=== PATIENT | male | born 1965 | race Caucasian/White ===

== ENCOUNTER 2017-12-30 11:34 | Outpatient (CLI) | payer OTHER, SELFPAY ==
--- NOTE | 2017-12-30 06:00 | DI.RAD_ITS ---
SYMPTOM/DIAGNOSIS: LUMBAR RADICULOPATHY C-ARM: Images submitted from the pain clinic demonstrate needle positioning over the right lateral position at the level of L 4 with an injection of radiopaque material. The images carried out in conjunction with a transforaminal epidural steroid injection. Please see Dr. Byrne's procedure report for further information.
--- NOTE | 2017-12-30 11:38 | PDOC.PAIN_ITS ---
Pain Clinic Procedure Note Current Active Problems Problem Status Onset Lumbar radiculopathy Acute LUMBAR / SACRAL TRANSFORAMINAL INJECTION NATHAN BERTRAND has been [facility] for a transforaminal nerve root block and steroid injection. COMMENTS: I reviewed Dr. Toledo's evaluation and his recent lumbar spine MRI Patient was interviewed and the medical record reviewed. There were no medical , pharmacologic, radiographic or other structural contraindications to attempting fluoroscopically guided transforaminal nerve root block and epidural steroid injection. Risks and expected side effects as well as potential benefit of the procedure were reviewed and voiced concerns addressed. The printed consent form was signed and witnessed. Standard time-out procedure was performed. Patient was placed in the prone position on the fluoroscopy table and automated blood pressure cuff and pulse oximeter applied. Fluoroscopy was utilized to identify the right neural foramen between L4 and L5. A skin ezra was made for the needle insertion site. A Chlorhexadine prep was carried out, and sterile drapes were applied. Local anesthesia was achieved in the skin and subcutaneous tissues. A 22 gauge curved tip spinal needle was then inserted, advanced with fluoroscopic guidance into the neural foramen, confirmed on the lateral view. After negative aspiration, 2 ml of Omnipaque 240 was injected confirming position in A/P and lateral views. This showed a good spread of dye transforaminally into the epidural space. There was no vascular update with contrast injection under continuous fluoroscopy and digital substraction. 15 mg of Dexamethasone was injected, followed by 0.5 ml of 1% Xylocaine flush for the nerve root block, as well. There was no unusual discomfort expressed.The needle was withdrawn. The patient tolerated the procedure well. A Band-Aid was applied. Vital signs were stable throughout the procedure and were as recorded in nursing records. If given, dosages of intravenous drugs for anxiolysis and analgesia were documented in nursing records. Follow up plans and appointments were discussed. Post procedure instruction was given as documented in nursing records and patient was discharged in the care of an identified tractor trailer driver. COMMENTS: This procedure can be completed up to 3 times per 12 months if it is found to be effective. Kenneth Byrne DO, MPH [facility] - Subspecialty Board Certification in Pain Medicine CC: Leeanne Garnett
[2017-12-30] MEDS: Dexamethasone Sod. Phos./Pres-Free 10 MG/ML VIAL IJ (11:39)
[2017-12-30] MEDS: Omnipaque 240 MG/ML 50 ML BTL IJ (11:40)
[2017-12-30 11:46] VITALS: BP 111/75; PULSE 65; RESP 16; O2SAT 99
== END 2017-12-30 11:54 ==
PROVIDERS: PCP Physician Assistant; Visit Provider Preventive Medicine Occupational Medicine
DX: M54.16 Radiculopathy, lumbar region (principal)
CPT/HCPCS: 64483; 72100; Q9967

== ENCOUNTER 2018-01-20 11:23 | Outpatient (CLI) | payer OTHER, SELFPAY ==
--- NOTE | 2018-01-20 06:00 | DI.RAD_ITS ---
SYMPTOMS/DIAGNOSIS: LUMBAR RADICULOPATHY PAIN CLINIC: Fluoroscopy Time: 53.2 sec Images submitted from the pain clinic demonstrate positioning of needles over the right side of the L 3 - 4 vertebrae in conjunction with a L 3 - 4 transforaminal injection carried out by Dr. Donald. Please see the procedure report for further information.
[2018-01-20 11:30] VITALS: BP 131/80; PULSE 62; RESP 16; TEMP 36.6; O2SAT 98
[2018-01-20 12:38] VITALS: BP 121/78; PULSE 62; RESP 17; O2SAT 99
[2018-01-20] MEDS: Bupivacaine 0.5% Pres-Free 30 ML VIAL IJ (12:40)
[2018-01-20] MEDS: Omnipaque 240 MG/ML 50 ML BTL IJ (12:40)
[2018-01-20] MEDS: methylPREDNISolone ACETATE 40 MG/ML VIAL IJ (12:41)
--- NOTE | 2018-01-20 12:49 | PDOC.PAIN_ITS ---
Pain Clinic Procedure Note Current Active Problems Problem Status Onset Lumbar radiculopathy Chronic LUMBAR / SACRAL TRANSFORAMINAL INJECTION NATHAN BERTRAND has been referred to the [facility] for a transforaminal nerve root block and steroid injection. COMMENTS: Patient is status post decompressive surgery is low back pain mostly right lower extremity around his hip to his knee. He had one transforaminal injection at L4 which gave him some relief for a few weeks. He had seen Dr. Toledo who suggested first trying L4 then that was not effective L3. Patient is anxious to get some relief so plan is to do both levels today. Patient was interviewed and the medical record reviewed. There were no medical , pharmacologic, radiographic or other structural contraindications to attempting fluoroscopically guided transforaminal nerve root block and epidural steroid injection. Risks and expected side effects as well as potential benefit of the procedure were reviewed and voiced concerns addressed. The printed consent form was signed and witnessed. Standard time-out procedure was performed. Patient was placed in the prone position on the fluoroscopy table and automated blood pressure cuff and pulse oximeter applied. Fluoroscopy was utilized to identify the {right/} neural foramen between L3-4 and L4-5.. A skin ezra was made for the needle insertion site. A Chlorhexadine prep was carried out, and sterile drapes were applied. Local anesthesia was achieved in the skin and subcutaneous tissues. A 22 gauge curved tip spinal needle was then inserted, advanced with fluoroscopic guidance into the neural foramen, confirmed on the lateral view. After negative aspiration, 2 ml of Omnipaque 240 was injected confirming position in A/P and lateral views. This showed a good spread of dye transforaminally into the epidural space. There was no vascular update with contrast injection under continuous fluoroscopy and digital substraction. 40 mg of Depo-Medrol was injected, followed by 0.5 ml of 0.5% bupivacaine flush for the nerve root block, as well. There was no unusual discomfort expressed.The needle was withdrawn. The patient tolerated the procedure well. A Band-Aid was applied. Vital signs were stable throughout the procedure and were as recorded in nursing records. If given, dosages of intravenous drugs for anxiolysis and analgesia were documented in nursing records. Follow up plans and appointments were discussed. Post procedure instruction was given as documented in nursing records and patient was discharged in the care of an identified otr truck driver. COMMENTS: Patient noted that the injection that felt more like his usual pain was the L3-4. At the end of the procedure his back pain went from 4/10-0/10. He still had 4/10 right thigh pain. He follow back up with Dr. Toledo or can consider repeating this if he gets good relief that last for months. The other option we briefly talked about ways lumbar medial branch blocks and radiofrequency ablation. Information regarding this procedure. Looking at his MRI he may benefit from intra-articular steroid while at the right L3-4 facet joint. CC: Leeanne Garnett
== END 2018-01-20 11:43 ==
PROVIDERS: PCP Physician Assistant; Visit Provider Anesthesiology Pain Medicine
DX: M54.16 Radiculopathy, lumbar region (principal); G89.29 Other chronic pain
CPT/HCPCS: 64483; 64484; 72100; J1030; Q9967

== ENCOUNTER 2018-05-19 12:20 | Outpatient (CLI) | payer OTHER, SELFPAY ==
--- NOTE | 2018-05-19 06:00 | DI.RAD_ITS ---
SYMPTOMS/DIAGNOSIS: LUMBAR RADICULOPATHY, TRANSFORAMINAL EPIDURAL STEROID INJECTION PAIN CLINIC: Fluoroscopy Time: 36.9sec,12.21mgy Fluoroscopy was utilized by Dr. Byrne during the performance of a lumbar transforaminal epidural steroid injection. Please refer to the procedure report for complete details.
[2018-05-19 12:31] VITALS: BP 105/70; PULSE 58; RESP 18; TEMP 36; O2SAT 98
--- NOTE | 2018-05-19 13:12 | PDOC.PAIN ---
Pain Clinic Procedure Note Current Active Problems Problem Status Onset Lumbar radiculopathy Chronic LUMBAR / SACRAL TRANSFORAMINAL INJECTION NATHAN BERTRAND has been referred to the [facility] for a transforaminal nerve root block and steroid injection. COMMENTS: He did much better with the right L3 transforaminal epidural steroid injection in the past. He also has symptoms in that distribution. Because of that, we will not complete the right L4 at this time and put all of the medication at the right L3. He is in agreement. Patient was interviewed and the medical record reviewed. There were no medical, pharmacologic, radiographic or other structural contraindications to attempting fluoroscopically guided transforaminal nerve root block and epidural steroid injection. Risks and expected side effects as well as potential benefit of the procedure were reviewed and voiced concerns addressed. The printed consent form was signed and witnessed. Standard time-out procedure was performed. Patient was placed in the prone position on the fluoroscopy table and automated blood pressure cuff and pulse oximeter applied. Fluoroscopy was utilized to identify the right L3 neural foramen between L3 and L4. A skin ezra was made for the needle insertion site. A Chlorhexadine prep was carried out, and sterile drapes were applied. Local anesthesia was achieved in the skin and subcutaneous tissues. A 22 gauge curved tip spinal needle was then inserted, advanced with fluoroscopic guidance into the neural foramen, confirmed on the lateral view. After negative aspiration, 2 ml of Omnipaque 240 was injected confirming position in A/P and lateral views. This showed a good spread of dye transforaminally into the epidural space. There was no vascular update with contrast injection under continuous fluoroscopy and digital substraction. 15 mg of Dexamethasone was injected, followed by 0.5 ml of 1% Xylocaine flush for the nerve root block, as well. There was no unusual discomfort expressed.The needle was withdrawn. The patient tolerated the procedure well. A Band-Aid was applied. Vital signs were stable throughout the procedure and were as recorded in nursing records. If given, dosages of intravenous drugs for anxiolysis and analgesia were documented in nursing records. Follow up plans and appointments were discussed. Post procedure instruction was given as documented in nursing records and patient was discharged in the care of an identified stacker driver. COMMENTS: This procedure can be completed up to 3 times per 12 months if it is found to be effective. At 5 minutes post-procedure he rated his pain at 0/10. CC: Leeanne Garnett
[2018-05-19 13:15] VITALS: BP 134/81; PULSE 61; RESP 15; O2SAT 97
[2018-05-19] MEDS: methylPREDNISolone ACETATE 80 MG/ML VIAL IM (13:20)
[2018-05-19] MEDS: Omnipaque 240 MG/ML 50 ML BTL IJ (13:21)
== END 2018-05-19 12:40 ==
PROVIDERS: PCP Physician Assistant; Visit Provider Preventive Medicine Occupational Medicine
DX: M54.16 Radiculopathy, lumbar region (principal)
CPT/HCPCS: 64483; 72100; J1040; Q9967